=== PATIENT | male | born 1960 | race Caucasian/White ===

== ENCOUNTER 2019-04-23 16:01 | Emergency (ER) | payer OTHER ==
[2019-04-23] MEDS ORDERED: Diphtheria,Pertussis(Acell),Tetanus Vaccine 0.5 ML SDV IM ONE (17:03)
--- NOTE | 2019-04-23 17:22 | EDM.PDOC ---
ED HPI GENERAL MEDICAL PROBLEM - General Chief Complaint: General Stated Complaint: FISH HOOK Time Seen by Provider: 04/23/19 16:44 Source of Information: Reports: Patient History Limitations: Reports: No Limitations - History of Present Illness INITIAL COMMENTS - FREE TEXT/NARRATIVE: 58 yo male presents to ER with fish hook in right forearm. generally healthy - Related Data Allergies Allergy/AdvReac Type Severity Reaction Status Date / Time No Known Allergies Allergy Verified 04/23/19 16:41 Home Meds: Home Meds NK [No Known Home Meds] 04/23/19 [History] Past Medical History - Past Health History Medical/Surgical History: Denies Medical/Surgical History Social & Family History - Tobacco Use Smoking Status *Q: Never Smoker ED ROS GENERAL - Review of Systems Review Of Systems: See Below Constitutional: Denies: Fever, Chills Respiratory: Denies: Shortness of Breath Cardiovascular: Denies: Chest Pain ED EXAM, GENERAL - Physical Exam Exam: See Below Free Text/Narrative:: exam limited to right forearm Exam Limited By: No Limitations General Appearance: Alert, WD/WN, No Apparent Distress Skin Exam: Other (fish hook in right forearm) ED GENERAL MEDICAL PROCEDURES - Additional/Other Procedure(s) Other (Free Text) Procedure(s): puncture area cleansed with alcohol. infiltrated with 1 cc of 1% lidocaine. hook removed without difficulty. pt tolerated well Course - Vital Signs Last Recorded V/S: Last Vital Signs Temp 36.6 C 04/23/19 16:43 Pulse 57 L 04/23/19 16:43 Resp 16 04/23/19 16:43 BP 108/60 04/23/19 16:43 Pulse Ox 98 04/23/19 16:43 - Orders/Labs/Meds Orders: Active Orders 24 hr Category Date Time Status Vaccines to be Administered [RC] PER UNIT ROUTINE Care 04/23/19 17:03 Active Meds: Medications Discontinued Medications Generic Name Dose Route Start Last Admin Trade Name Freq PRN Reason Stop Dose Admin Diphtheria/Tetanus/Acell Pertussis 0.5 ml 04/23/19 17:03 04/23/19 17:24 Adacel IM 04/23/19 17:04 0.5 ml .ONCE ONE Administration Lidocaine HCl 5 ml 04/23/19 17:04 04/23/19 17:24 Xylocaine-Mpf 1% INJECT 04/23/19 17:05 5 ml ONETIME ONE Administration Departure - Departure Time of Disposition: 17:21 Disposition: Home, Self-Care 01 Condition: Good Clinical Impression: Fish hook in forearm - Discharge Information *PRESCRIPTION DRUG MONITORING PROGRAM REVIEWED*: Not Applicable *COPY OF PRESCRIPTION DRUG MONITORING REPORT IN PATIENT ADELA: Not Applicable Referrals: PCP,None [Primary Care Provider] - Forms: ED Department Discharge Additional Instructions: wash with warm soapy water observe for signs of infection - fire engine red, increase in pain, purulent drainage - My Orders Last 24 Hours: My Active Orders 04/23/19 17:03 Vaccines to be Administered [RC] PER UNIT ROUTINE - Assessment/Plan Last 24 Hours: My Active Orders 04/23/19 17:03 Vaccines to be Administered [RC] PER UNIT ROUTINE
== END 2019-04-23 18:00 | disposition home or self-care (01) ==
LOC: JP.ED 16:01
DX: S50.851A Superficial foreign body of right forearm, initial encounter (principal); Z23 Encounter for immunization; W45.8XXA Other foreign body or object entering through skin, initial encounter
CPT/HCPCS: 90471; 90715; 99282; J2001